=== PATIENT | male | born 1990 | race Caucasian/White ===

== ENCOUNTER 2024-09-06 08:51 | Outpatient (CLI) | payer BC ==
[2024-09-06] MEDS ORDERED: Iopamidol 370 76% 100 ML VIAL ONE (09:16)
== END 2024-09-06 08:52 | disposition home or self-care (01) ==
LOC: CT 08:51
DX: R10.32 Left lower quadrant pain (principal); K57.30 Diverticulosis of large intestine without perforation or abscess without bleeding
CPT/HCPCS: 74178; Q9967

== ENCOUNTER 2025-06-26 14:10 | Outpatient (CLI) | payer BC | END 2025-06-26 14:11 | disposition home or self-care (01) | LOC: RAD 14:10 | PROVIDERS: ATTEND Internal Medicine | DX: R07.89 Other chest pain (principal) | CPT/HCPCS: 71046 ==

== ENCOUNTER 2025-08-16 07:41 | Outpatient (CLI) | payer BC ==
[2025-08-16] MEDS ORDERED: Iopamidol 370 76% 100 ML VIAL ONE (11:51)
== END 2025-08-16 07:42 | disposition home or self-care (01) ==
LOC: CT 07:41
PROVIDERS: ATTEND Student in an Organized Health Care Education/Training Program
DX: G45.8 Other transient cerebral ischemic attacks and related syndromes (principal)
CPT/HCPCS: 71275; Q9967